=== PATIENT | female | born 1990 | race Caucasian/White ===

== ENCOUNTER → 2020-11-25 | Outpatient (CLI) | payer MEDICAID, OTHER ==
[~2020-11-25] MED LIST: ANUS2.5C2 TOP; COLA100C5 PO; MILK10SU PO; MOTR200T44 PO; TYLE325T5 PO
--- NOTE | 2020-11-26 17:21 | REPVR ---
PROCEDURE INFORMATION: Exam: MR Lumbar Spine Without and With Contrast Exam date and time: 11/25/2020 2:57 PM Age: 30 years old Clinical indication: Low back pain; Additional info: Thoracic and low back pain TECHNIQUE: Imaging protocol: Multiplanar magnetic resonance images of the lumbar spine without and with intravenous contrast. Contrast material: PROHANCE; Contrast volume: 20 ml; Contrast route: INTRAVENOUS (IV); COMPARISON: CT ABD PELVIS WITH CONTRAST 01/08/2015 1:39 PM FINDINGS: Lumbar vertebral body heights are maintained. Modic type 1 edematous and enhancing degenerative endplate change anteriorly at T12-L1. No evidence of acute lumbar spine fracture. No cord compression. No abnormal cord signal. Conus medullaris terminates at the L1 level. Lumbar disc space heights are preserved. No significant areas of canal or foraminal narrowing. Paravertebral soft tissues are unremarkable. IMPRESSION: Modic type 1 edematous and enhancing degenerative endplate change anteriorly at T12-L1. Please refer to MRI thoracic spine for findings in the thoracic spine. Electronically signed by: Mac House On 11/26/2020 17:20:50 PM
--- NOTE | 2020-11-26 17:24 | REPVR ---
PROCEDURE INFORMATION: Exam: MR Thoracic Spine Without and With Contrast Exam date and time: 11/25/2020 2:57 PM Age: 30 years old Clinical indication: Pain in thoracic spine; Without myelopathy or radiculopathy; Additional info: Thoracic and low back pain TECHNIQUE: Imaging protocol: Multiplanar magnetic resonance images of the thoracic spine without and with contrast. Contrast material: PROHANCE; Contrast volume: 20 ml; Contrast route: INTRAVENOUS (IV); COMPARISON: CT ABD PELVIS WITH CONTRAST 01/08/2015 1:39 PM FINDINGS: Round focus of fatty marrow signal posteriorly at T11. Modic type 1 edematous and enhancing degenerative endplate change anteriorly at T12-L1. Nonspecific slight wedging of the anterior aspect of the T11 vertebral body. Prominent Schmorl's nodes versus chronic mild compression fractures of the superior and inferior endplates of T7. No MR evidence of acute thoracic spine fracture. Remaining thoracic vertebral body heights are maintained. No cord compression. No abnormal cord signal. Thoracic kyphosis is preserved. Thoracic disc space heights are unremarkable. Soft tissues are unremarkable. IMPRESSION: 1. Modic type 1 edematous and enhancing degenerative endplate change anteriorly at T12-L1. 2. Other chronic findings, as above. Electronically signed by: Mac House On 11/26/2020 17:24:18 PM
== END ==
LOC: M PLARAD 13:44
PROVIDERS: ATTEND Nurse Practitioner Family
DX: M51.85 Other intervertebral disc disorders, thoracolumbar region (principal); M54.5 Low back pain